=== PATIENT | male | born 1985 | race Caucasian/White ===

== ENCOUNTER 2018-05-02 11:40 | Outpatient (CLI) | payer OTHER ==
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
== END 2018-05-02 11:41 | disposition home or self-care (01) ==
LOC: DI 11:40
PROVIDERS: ATTEND Family Medicine
DX: M41.84 Other forms of scoliosis, thoracic region (principal); M51.34 Other intervertebral disc degeneration, thoracic region; R07.2 Precordial pain; Z87.828 Personal history of other (healed) physical injury and trauma
CPT/HCPCS: 71120; 72070; 72100